=== PATIENT | male | born 1945 | race Caucasian/White ===

== ENCOUNTER 2018-12-13 06:26 | Day surgery (SDC) | payer MEDICARE, BC ==
[2018-12-05 16:42] LABS: BASOPHILS % (AUTO) 0.5 % (0-1); EOSINOPHILS # (AUTO) 0.1 X10'3 (0-0.9); LYMPHOCYTES # (AUTO) 2.7 X10'3 (1.1-4.8); LYMPHOCYTES % (AUTO) 35.7 % (21-51); MEAN CORPUSCULAR HEMOGLOBIN 33.6 PG (27.0-31.0); MEAN CORPUSCULAR HGB CONC 34.9 g/dL (33.0-36.5); MEAN CORPUSCULAR VOLUME 96.2 FL (78-98); MEAN PLATELET VOLUME 7.2 FL (7.4-10.4); MONOCYTES # (AUTO) 0.5 X10'3 (0-0.9); MONOCYTES % (AUTO) 6.2 % (2-12); NEUTROPHILS # (AUTO) 4.2 X10'3 (1.8-7.7); NEUTROPHILS % (AUTO) 55.6 % (42-75); PRE OP HEMATOCRIT 43.9 % (42.0-52.0); PRE OP HEMOGLOBIN 15.4 g/dL (14.0-17.9); PRE OP PLATELET COUNT 223 X10'3 (140-440); RED BLOOD COUNT 4.57 X10'6 (4.70-6.10); RED CELL DISTRIBUTION WIDTH 13.2 % (11.5-14.5)
[2018-12-05 16:56] LABS: ALBUMIN 3.6 G/DL (3.4-5.0); ALBUMIN/GLOBULIN RATIO 0.9 (1.1-1.5); ALKALINE PHOSPHATASE 75 IU/L (46-116); BLOOD UREA NITROGEN 19 MG/DL (7-18); BUN/CREATININE RATIO 18.6 (5.4-32.0); CALCIUM 9.2 MG/DL (8.5-10.1); CHLORIDE 103 MMOL/L (99-107); CREATININE 1.02 MG/DL (0.60-1.10); PRE OP ALT 44 U/L (30-65); PRE OP ANION GAP 7 (8-16); PRE OP AST 19 U/L (10-37); PRE OP BILIRUB, TOTAL 0.5 MG/DL (0.0-1.0); PRE OP POTASSIUM 3.8 MMOL/L (3.4-5.1); PRE OP SODIUM 137 MMOL/L (135-145); TOTAL CARBON DIOXIDE 26.6 MMOL/L (24-32); TOTAL PROTEIN 7.8 G/DL (6.4-8.2); eGFR 72 ML/MIN
[2018-12-05 16:57] LABS: PRE OP GLUCOSE 169 MG/DL (70-104)
[2018-12-08 13:29] LABS: HEMOGLOBIN A1C 5.2 % (4.5-6.2)
[~2018-12-13] VITALS: Ht 177.8 cm; Wt 94.3 kg
[2018-12-13] VITALS (10 sets, daily range): BP systolic 132–142; BP diastolic 65–82
[~2018-12-13 06:26] MED LIST: ARMO150T5 PO; ASCO500T20 PO; ASPI-611 PO; ATOR10TA87 PO; DOCUMENT DATE & TIME OF BETA-BLOCKER PO ONE; FLAX1CAP4 PO; METO-384 PO; MULT-1074 PO; OMEG1CAP PO; OMEP40CA13 PO; TIOT18CA3 INH; cefazolin/dext.iso 2gm/100 ML IV ONE; famotidine 20mg tablet PO ONE; ringers solution, lacted 1,000 ML IV SCH
[2018-12-13] MEDS ORDERED: LIDOcaine 1% (10mg/ml) 2ml vial ONE (07:08)
[2018-12-13] MEDS ORDERED: ROPIVAcaine 0.5% (5mg/ml) 30ml vial ONE (07:13)
[2018-12-13] MEDS ORDERED: BUPIVAcaine/PF 2.5mg/ml (0.25%) 10ml vial ONE (07:15)
[2018-12-13] MEDS ORDERED: midazolam 2 mg/2 ml injection ONE (07:17)
[2018-12-13] MEDS ORDERED: fentaNYL/PF 50MCG/1 ML 2ML syringe ONE (07:17)
[2018-12-13] MEDS ORDERED: ondansetron/PF 4mg/2ml inj ONE (07:20)
[2018-12-13] MEDS ORDERED: LIDOcaine 2% (20mg/ml) 5ml vial ONE (07:20)
[2018-12-13] MEDS ORDERED: propofol inj 20 ML IV ONE (07:20)
[2018-12-13] MEDS ORDERED: dexamethasone sod phosphate 4mg/ml inj. ONE (07:20)
[2018-12-13] MEDS ORDERED: ringers solution, lacted 1,000 ML IV SCH (07:32)
[2018-12-13] MEDS ORDERED: labetalol 20mg/4ml (5mg/ml) syringe IV PRN (07:35)
[2018-12-13] MEDS ORDERED: ondansetron/PF 4mg/2ml inj IV PRN ×2 (07:35→13:45)
[2018-12-13] MEDS ORDERED: fentaNYL/PF 50MCG/1 ML 2ML syringe IV PRN ×2 (07:35)
[2018-12-13] MEDS ORDERED: hydrALAZINE 20mg/ml inj. IV PRN (07:35)
[2018-12-13] MEDS ORDERED: morphine 4 MG/ML inj SYRINge IV PRN ×2 (07:35)
[2018-12-13] MEDS ORDERED: sevoflurane 250ml liquid IH ONE (07:45)
[2018-12-13] MEDS ORDERED: ePHEDrine 50MG/ML INJ. ONE (08:02)
[2018-12-13] MEDS ORDERED: acetaminophen 1,000mg/100ml IV 100 ML IV ONE (09:12)
[2018-12-13] MEDS ORDERED: morphine 10mg/ml inj. ONE (09:32)
[2018-12-13] MEDS ORDERED: HYDROcodone/acetaminophen 10/325mg tab PO PRN ×3 (10:10→13:45)
--- NOTE | 2018-12-13 10:43 | NUR ---
Received from OR via [facility] , accompanied by Anesthesiologist SADAF and report given by Anesthesiolgist. PATIENT WITH 10L MASK ON WITH 98% SATURATIONS. DENIES PAIN TO LEFT SHOULDER. LEFT UE IN SLING WITH + RADIAL PULSE PRESENT DRESSING TO ANTERIOR LEFT SHOULDER IS CDI. 20G PIV IN RIGHT HAND RUNNING LR AT 100. MICHAEL ANTOINE FOR COMFORT. Addendum: 12/13/18 at 1055 by Francisco Pinedo RN, RN Amended: Links added.
[2018-12-13] MEDS ORDERED: ROPIVAcaine 0.2%/PF PAIN PUMP 400 ML IJ SCH (10:51)
--- NOTE | 2018-12-13 11:53 | NUR ---
ALL CRITERIA FOR TRANSFER TO THE [facility] HAS BEEN ACHIEVED. VSS. BED LOW, CALL LIGHT AND VS. SET IN PLACE. RN PRESENT TO ACCEPT CARE. PATIENT RESTING COMFORTABLY IN BED. BELONGINGS SENT WITH PATIENT. DRESSINGS CDI. SENT FAMILY AND ONE BAG OF BELONGINGS OVER WITH PATIENT. BHAVANA FONSECA ACCEPTING RN PRESENT UPON ARRIVAL. Addendum: 12/13/18 at 1201 by Francisco Coates - BHAVANA RN Amended: Links added.
[2018-12-13] MEDS ORDERED: acetaminophen 325mg tablet PO PRN (13:45)
[2018-12-13] MEDS ORDERED: ketorolac trometh. 30mg/ml inj. IV SCH (14:00)
--- NOTE | 2018-12-13 15:05 | NUR ---
(1150) LEFT RADIAL PULSE STRONG WITH GOOD MOVEMENT OF FINGERS. NUMBNESS TO LEFT ARM/SHOULDER PRESENT R/T BLOCK. ICE TO LEFT SHOULDER. PAIN PUMP INPLACE WITH LEFT SHOULDER DSG C/D/I. (1250) BP 132/76, P 63, R 18, SAO2 95%. TOLERATING PO FLUID AND SNACK WELL. REQUESTS TO STAY LONGER. DENIES PAIN, C/O SLIGHT NAUSEA WHICH RESOLVED WITH ZOFRAN IV. (1350) BP 133/69, P 77, R 16, SAO2 96%. STATES HE FEELS DROWSY AND NOT ABLE TO GO HOME YET, AT BEDSIDE. (1450) BP 131/72, P68, R17, SAO2 96%. UP AMBULATING WITH SB ASSIST. VOID QS BRP. INITIAL PHYSICAL ASSESS OF SURGERY SITE UNCHANGED. PT AND STATE READINESS TO DC HOME AT THIS TIME. Addendum: 12/13/18 at 1527 by Leora Perez RN Amended: Links added.
[2018-12-13] MEDS ORDERED: ceFAZolin 1GM/D5W- ADD-VANTAGE 50 ML IV SCH (16:00)
== END 2018-12-13 15:05 | disposition home or self-care (01) ==
LOC: PAS 06:26
PROVIDERS: ATTEND Orthopaedic Surgery
DX: S46.011A Strain of muscle(s) and tendon(s) of the rotator cuff of right shoulder, initial encounter (principal); M65.811 Other synovitis and tenosynovitis, right shoulder; M19.012 Primary osteoarthritis, left shoulder; M19.011 Primary osteoarthritis, right shoulder; M75.21 Bicipital tendinitis, right shoulder; M75.51 Bursitis of right shoulder; M25.711 Osteophyte, right shoulder; I34.0 Nonrheumatic mitral (valve) insufficiency; G89.18 Other acute postprocedural pain; G47.30 Sleep apnea, unspecified; F17.290 Nicotine dependence, other tobacco product, uncomplicated; E66.9 Obesity, unspecified; Z68.29 Body mass index [BMI] 29.0-29.9, adult; Z79.899 Other long term (current) drug therapy; Z72.89 Other problems related to lifestyle; X58.XXXA Exposure to other specified factors, initial encounter; Y93.89 Activity, other specified; Y92.89 Other specified places as the place of occurrence of the external cause; Y99.8 Other external cause status
CPT/HCPCS: 29824; 29826; 29827; 36415; 64415; 76942; 80053; 82948; 83036; 85025; 93005; 93306; C1713; J0131; J1100; J2001; J2250; J2270; J2405; J2704; J2795; J3010; J3490; A4565; A4618; A6449; A7000; J7120